=== PATIENT | female | born 1940 | race African-American/Black ===

== ENCOUNTER 2020-09-19 16:37 | Inpatient (IN) | payer BC, MEDICARE, OTHER ==
[~2020-09-19] VITALS: Ht 160 cm; Wt 103.4 kg
[~2020-09-19 16:37] MED LIST: DABI75CA5 PO; VALS320T15 PO
[2020-09-19] MEDS ORDERED: FUROSEMIDE 40 MG/4 ML VIAL IV ONE (17:00)
[2020-09-19 17:53] LABS: Basophils # (auto) 0 10 ^3/uL (0-0.2); Eosinophils # (auto) 0 10 ^3/uL (0-0.8); Mean Corpuscular Hemoglobin 23.6 pg (28.0-32.0); Monocytes # (auto) 0.3 10 ^3/uL (0-1.3); Red Cell Distribution Width 18.6 % (11.8-14.3); White Blood Cell 4.9 10^3/uL (4.4-10.8)
[2020-09-19 17:54] LABS: Basophils % (auto) 0.5 % (0.0-2.0); Hematocrit 28.4 % (36.0-46.0); Hemoglobin 8.6 g/dL (12.2-16.2); Lymphocytes # (auto) 0.9 10 ^3/uL (0.4-5.4); Mean Corpuscular Hgb Conc. 30.4 g/dL (32.0-36.0); Mean Corpuscular Volume 77.5 fL (80.0-100.0); Monocytes % (auto) 7.1 % (0.0-12.0); Neutrophils # (auto) 3.7 10 ^3/uL (1.6-8.6); Neutrophils % (auto) 74.4 % (37.0-80.0); Platelet Count (auto) 218 10^3/uL (140-450); Red Blood Cells 3.67 10^6/uL (4.0-5.20)
[2020-09-19 18:20] LABS: Albumin 2.7 g/dL (3.4-5.0); Calcium 7.4 mg/dL (8.5-10.1); Potassium 3.5 mmol/L (3.5-5.1)
[2020-09-19 18:26] LABS: Total Protein 7.3 g/dL (6.4-8.2)
[2020-09-19] MEDS ORDERED: AZITHROMYCIN 500MG/ 250ML 250 ML IV ONE (18:45)
[2020-09-19] MEDS ORDERED: methylPREDNISolone SOD SUCC 125 MG/2 ML VL IV ONE (18:45)
[2020-09-19] MEDS ORDERED: ZINC SULFATE 220mg CAP or TAB PO ONE (18:45)
[2020-09-19] MEDS ORDERED: ASCORBIC ACID 500 MG TAB PO ONE (18:45)
[2020-09-19] MEDS ORDERED: ENOXAPARIN SOD 100 MG/1 ML SYRINGE SC ONE (18:45)
[2020-09-19] MEDS ORDERED: cefTRIAXone 1GM/50ML D5W 50 ML IV ONE (19:00)
[2020-09-19] MEDS ORDERED: NITROGLYCERIN 0.4 MG SL TAB SL PRN (20:00)
[2020-09-19] MEDS ORDERED: ACETAMINOPHEN 500 MG TAB PO PRN (20:00)
[2020-09-19] MEDS ORDERED: MORPHINE SULF INJ 2 MG/ML SYRINGE 1ML IV PRN (20:00)
[2020-09-19 20:56] LABS: Magnesium 2.1 mg/dL (1.6-2.6)
[2020-09-19 21:18] LABS: CRP High Sensitivity 11.8 mg/dL (< 0.3)
[2020-09-19 21:29] VITALS: BP 157/56
[2020-09-19] MEDS ORDERED: REMDESIVIR 200 MG in NS 210ml LOADING DOSE ADULT IV ONE (22:00)
[2020-09-19] MEDS: ALBUTEROL SULF HFA 90MCG INH 200DOSE IN SCH (22:00)
[2020-09-19] MEDS ORDERED: DOXYCYCLINE 100MG/250ML 250 ML IV SCH (22:00)
[2020-09-19] MEDS: BUDESONIDE (INHALATION) 180 MCG IH IN SCH (22:00)
[2020-09-19] MEDS: CALCIUM CARB 500 MG CHEW TAB PO PRN (23:57)
[2020-09-19] MEDS: HYDROcodone-ACET 5/325MG TAB PO PRN (23:57)
[2020-09-20] MEDS: CHOLECALCIFEROL (VITD3) 2,000 UNIT CAP PO SCH ×2 (00:13→11:17)
[2020-09-20] MEDS: ASCORBIC ACID 1,000 MG TAB PO SCH ×2 (00:13→11:17)
[2020-09-20] MEDS: DOXYCYCLINE 100MG/250ML 250 ML IV SCH ×3 (02:43→21:32)
[2020-09-20] MEDS: HYDROcodone-ACET 5/325MG TAB PO PRN (05:22)
[2020-09-20 06:32] LABS: Hematocrit 28.1 % (36.0-46.0); Hemoglobin 8.8 g/dL (12.2-16.2); Mean Corpuscular Hemoglobin 23.9 pg (28.0-32.0); Mean Corpuscular Hgb Conc. 31.5 g/dL (32.0-36.0); Platelet Count (auto) 193 10^3/uL (140-450); Red Cell Distribution Width 18.5 % (11.8-14.3); White Blood Cell 4.7 10^3/uL (4.4-10.8)
[2020-09-20 06:49] LABS: Calcium 7.6 mg/dL (8.5-10.1); Potassium 3.2 mmol/L (3.5-5.1)
[2020-09-20 06:51] LABS: Basophils % (manual) 0 (0.0-2.0); Blast Cells 0; Eosinophils % (manual) 0 (0-7); Metamyelocytes % 0; Myelocytes % 0; Promyelocytes % 0; Reactive Lymphocytes 0
[2020-09-20 06:56] LABS: Albumin 2.6 g/dL (3.4-5.0); BUN/Creatinine Ratio 16.7; Band Neutrophils % (manual) 1; Bilirubin, Total 0.7 mg/dL (0.2-1.0); Lymphocytes % (manual) 27 (10.0-50.0); Monocytes % (manual) 1 (0-12)
[2020-09-20] MEDS: DexAMETHasone SOD PHOS 10MG/1ML VIAL INJ IV SCH (11:17)
[2020-09-20] MEDS: ZINC SULFATE 220mg CAP or TAB PO SCH (11:17)
[2020-09-20] MEDS: cefTRIAXone 1GM/50ML D5W 50 ML IV SCH (11:17)
[2020-09-20] MEDS: BUDESONIDE (INHALATION) 180 MCG IH IN SCH ×2 (11:23→23:16)
[2020-09-20] MEDS: ALBUTEROL SULF HFA 90MCG INH 200DOSE IN SCH ×3 (11:23→23:16)
[2020-09-20] MEDS: REMDESIVIR 100mg in NS 230ml DAILYx4DAYS (NO VENT) IV SCH (17:20)
[2020-09-20] MEDS: CALCIUM CARB 500 MG CHEW TAB PO PRN (18:13)
[2020-09-20 20:00] VITALS: BP 142/59
[2020-09-20 21:57] VITALS: BP 142/59
[2020-09-21] VITALS (11 sets, daily range): BP systolic 115–150; BP diastolic 49–95
[2020-09-21] MEDS ORDERED: GUAI100S6 PO (03:53)
[2020-09-21] MEDS ORDERED: FURO1TAB31 PO (03:53)
[2020-09-21] MEDS ORDERED: LACT10SO3 PO (03:53)
[2020-09-21] MEDS ORDERED: PREG100C PO (03:53)
[2020-09-21] MEDS ORDERED: PERCOT PO (03:53)
[2020-09-21] MEDS ORDERED: POTA10TA51 PO (03:53)
[2020-09-21] MEDS ORDERED: RIOC1TAB3 PO (03:53)
[2020-09-21] MEDS ORDERED: RIVA20TA PO (03:53)
[2020-09-21] MEDS ORDERED: LIDO5DIS21 TOP (03:53)
[2020-09-21] MEDS ORDERED: PNEUMOCOCCAL VACC POLYS 25 MCG/0.5 ML VIAL IM ONE (04:00)
[2020-09-21] MEDS ORDERED: INFLUENZA QUAD 2020-2021 0.5 ML SYRG IM ONE (04:00)
[2020-09-21] MEDS ORDERED: POTASSIUM CHL 20 Meq TABLET PO ONE (06:00)
[2020-09-21] MEDS: BUDESONIDE (INHALATION) 180 MCG IH IN SCH ×2 (06:46→22:16)
[2020-09-21] MEDS: ALBUTEROL SULF HFA 90MCG INH 200DOSE IN SCH ×3 (06:46→22:16)
[2020-09-21] MEDS: cefTRIAXone 1GM/50ML D5W 50 ML IV SCH (09:12)
[2020-09-21] MEDS: DOXYCYCLINE 100MG/250ML 250 ML IV SCH ×2 (11:13→21:34)
[2020-09-21] MEDS: DexAMETHasone SOD PHOS 10MG/1ML VIAL INJ IV SCH (11:13)
[2020-09-21] MEDS: ZINC SULFATE 220mg CAP or TAB PO SCH (11:13)
[2020-09-21] MEDS: CHOLECALCIFEROL (VITD3) 2,000 UNIT CAP PO SCH (11:13)
[2020-09-21] MEDS: ASCORBIC ACID 1,000 MG TAB PO SCH (11:14)
[2020-09-21] MEDS: CALCIUM CARB 500 MG CHEW TAB PO PRN (11:23)
[2020-09-21] MEDS: REMDESIVIR 100mg in NS 230ml DAILYx4DAYS (NO VENT) IV SCH (17:30)
[2020-09-21] MEDS: HYDROcodone-ACET 5/325MG TAB PO PRN (21:48)
[2020-09-22 05:54] VITALS: BP 146/76
[2020-09-22] MEDS: BUDESONIDE (INHALATION) 180 MCG IH IN SCH ×2 (06:08→21:56)
[2020-09-22] MEDS: ALBUTEROL SULF HFA 90MCG INH 200DOSE IN SCH ×3 (06:08→21:56)
[2020-09-22 07:49] LABS: Potassium 3.5 mmol/L (3.5-5.1)
[2020-09-22 07:57] LABS: Albumin 2.5 g/dL (3.4-5.0); BUN/Creatinine Ratio 21.7; Calcium 8.1 mg/dL (8.5-10.1)
[2020-09-22 08:00] LABS: Bilirubin, Total 0.8 mg/dL (0.2-1.0); Total Protein 6.6 g/dL (6.4-8.2)
[2020-09-22 09:00] VITALS: BP 146/76
[2020-09-22] MEDS: cefTRIAXone 1GM/50ML D5W 50 ML IV SCH (10:54)
[2020-09-22] MEDS: ASCORBIC ACID 1,000 MG TAB PO SCH (10:55)
[2020-09-22] MEDS: ZINC SULFATE 220mg CAP or TAB PO SCH (10:55)
[2020-09-22] MEDS: CHOLECALCIFEROL (VITD3) 2,000 UNIT CAP PO SCH (10:55)
[2020-09-22] MEDS: DexAMETHasone SOD PHOS 10MG/1ML VIAL INJ IV SCH (10:55)
[2020-09-22] MEDS: DOXYCYCLINE 100MG/250ML 250 ML IV SCH ×2 (12:00→22:19)
[2020-09-22 12:56] VITALS: BP 156/99
[2020-09-22] MEDS ORDERED: FUROSEMIDE 40 MG/4 ML VIAL IV ONE (16:15)
[2020-09-22] MEDS ORDERED: POTASSIUM CHL 20 Meq TABLET PO ONE (16:15)
[2020-09-22 16:57] VITALS: BP 151/85
[2020-09-22] MEDS: REMDESIVIR 100mg in NS 230ml DAILYx4DAYS (NO VENT) IV SCH (18:20)
[2020-09-22 21:00] VITALS: BP 158/72
[2020-09-22] MEDS: guaiFENesin-CODEINE Liq 5 ML UD PO PRN (22:19)
[2020-09-22 22:40] VITALS: BP 145/70
[2020-09-23 01:29] VITALS: BP 145/70
[2020-09-23 05:00] VITALS: BP 148/81
[2020-09-23] MEDS: BUDESONIDE (INHALATION) 180 MCG IH IN SCH ×2 (06:53→21:26)
[2020-09-23] MEDS: ALBUTEROL SULF HFA 90MCG INH 200DOSE IN SCH ×3 (06:53→21:26)
[2020-09-23 07:38] LABS: Albumin 2.6 g/dL (3.4-5.0); BUN/Creatinine Ratio 22.1; Calcium 7.9 mg/dL (8.5-10.1); Potassium 4.1 mmol/L (3.5-5.1); Total Protein 6.9 g/dL (6.4-8.2)
[2020-09-23 07:40] LABS: Bilirubin, Total 1.4 mg/dL (0.2-1.0)
[2020-09-23 09:00] VITALS: BP 148/67
[2020-09-23] MEDS: DexAMETHasone SOD PHOS 10MG/1ML VIAL INJ IV SCH (09:25)
[2020-09-23] MEDS: cefTRIAXone 1GM/50ML D5W 50 ML IV SCH (09:25)
[2020-09-23] MEDS: FUROSEMIDE 40 MG/4 ML VIAL IV SCH (09:27)
[2020-09-23] MEDS: DOXYCYCLINE 100MG/250ML 250 ML IV SCH ×2 (09:27→22:21)
[2020-09-23] MEDS: ZINC SULFATE 220mg CAP or TAB PO SCH (09:28)
[2020-09-23] MEDS: ASCORBIC ACID 1,000 MG TAB PO SCH (09:28)
[2020-09-23] MEDS: POTASSIUM CHL 20 Meq TABLET PO SCH (09:28)
[2020-09-23] MEDS: CHOLECALCIFEROL (VITD3) 2,000 UNIT CAP PO SCH (09:28)
[2020-09-23 13:00] VITALS: BP 163/72
[2020-09-23 17:00] VITALS: BP 156/75
[2020-09-23] MEDS: REMDESIVIR 100mg in NS 230ml DAILYx4DAYS (NO VENT) IV SCH (17:30)
[2020-09-23 21:00] VITALS: BP 132/75
[2020-09-23] MEDS: HYDROcodone-ACET 5/325MG TAB PO PRN (22:34)
[2020-09-24] MEDS: guaiFENesin-CODEINE Liq 5 ML UD PO PRN ×3 (01:09→20:41)
[2020-09-24 05:00] VITALS: BP 142/64
[2020-09-24] MEDS: BUDESONIDE (INHALATION) 180 MCG IH IN SCH ×2 (06:11→22:24)
[2020-09-24] MEDS: ALBUTEROL SULF HFA 90MCG INH 200DOSE IN SCH ×3 (06:11→22:24)
[2020-09-24 09:09] VITALS: BP 150/69
[2020-09-24] MEDS: DexAMETHasone SOD PHOS 10MG/1ML VIAL INJ IV SCH (09:37)
[2020-09-24] MEDS: cefTRIAXone 1GM/50ML D5W 50 ML IV SCH (09:37)
[2020-09-24] MEDS: FUROSEMIDE 40 MG/4 ML VIAL IV SCH (09:37)
[2020-09-24] MEDS: POTASSIUM CHL 20 Meq TABLET PO SCH (09:38)
[2020-09-24] MEDS: ASCORBIC ACID 1,000 MG TAB PO SCH (09:38)
[2020-09-24] MEDS: DOXYCYCLINE 100MG/250ML 250 ML IV SCH (09:38)
[2020-09-24] MEDS: ZINC SULFATE 220mg CAP or TAB PO SCH (09:38)
[2020-09-24] MEDS: CHOLECALCIFEROL (VITD3) 2,000 UNIT CAP PO SCH (09:38)
[2020-09-24 12:50] VITALS: BP 154/55
[2020-09-24] MEDS ORDERED: cloNIDine HCL 0.1 MG TAB PO PRN (14:00)
[2020-09-24 17:00] VITALS: BP 143/60
[2020-09-24 22:00] VITALS: BP 106/60
[2020-09-24] MEDS: HYDROcodone-ACET 5/325MG TAB PO PRN (22:04)
[2020-09-25] MEDS: HYDROcodone-ACET 5/325MG TAB PO PRN ×2 (04:38→22:54)
[2020-09-25 05:00] VITALS: BP 130/64
[2020-09-25] MEDS: ALBUTEROL SULF HFA 90MCG INH 200DOSE IN SCH ×3 (06:57→21:31)
[2020-09-25] MEDS: BUDESONIDE (INHALATION) 180 MCG IH IN SCH ×2 (06:57→21:31)
[2020-09-25 08:00] VITALS: BP 126/71
[2020-09-25] MEDS: cefTRIAXone 1GM/50ML D5W 50 ML IV SCH (09:30)
[2020-09-25] MEDS: ZINC SULFATE 220mg CAP or TAB PO SCH (09:30)
[2020-09-25] MEDS: CHOLECALCIFEROL (VITD3) 2,000 UNIT CAP PO SCH (09:30)
[2020-09-25] MEDS: ASCORBIC ACID 1,000 MG TAB PO SCH (09:30)
[2020-09-25] MEDS: DexAMETHasone SOD PHOS 10MG/1ML VIAL INJ IV SCH (09:30)
[2020-09-25] MEDS: POTASSIUM CHL 20 Meq TABLET PO SCH (09:30)
[2020-09-25] MEDS: FUROSEMIDE 40 MG/4 ML VIAL IV SCH (09:30)
[2020-09-25 12:00] VITALS: BP 148/66
[2020-09-25 17:00] VITALS: BP 130/64
[2020-09-25 22:00] VITALS: BP 134/56
[2020-09-26 05:00] VITALS: BP 135/65
[2020-09-26] MEDS: ALBUTEROL SULF HFA 90MCG INH 200DOSE IN SCH ×3 (07:40→21:04)
[2020-09-26] MEDS: BUDESONIDE (INHALATION) 180 MCG IH IN SCH ×2 (07:42→21:04)
[2020-09-26 08:50] VITALS: BP 133/70
[2020-09-26 09:17] VITALS: BP 134/56
[2020-09-26] MEDS: ZINC SULFATE 220mg CAP or TAB PO SCH (10:00)
[2020-09-26] MEDS: cefTRIAXone 1GM/50ML D5W 50 ML IV SCH (10:37)
[2020-09-26] MEDS: POTASSIUM CHL 20 Meq TABLET PO SCH (10:37)
[2020-09-26] MEDS: DexAMETHasone SOD PHOS 10MG/1ML VIAL INJ IV SCH (10:37)
[2020-09-26] MEDS: FUROSEMIDE 40 MG/4 ML VIAL IV SCH (10:37)
[2020-09-26] MEDS: CHOLECALCIFEROL (VITD3) 2,000 UNIT CAP PO SCH (10:38)
[2020-09-26] MEDS: ASCORBIC ACID 1,000 MG TAB PO SCH (10:38)
[2020-09-26 13:00] VITALS: BP 108/55
[2020-09-26] MEDS: guaiFENesin-CODEINE Liq 5 ML UD PO PRN (15:55)
[2020-09-26 17:00] VITALS: BP 116/50
[2020-09-26] MEDS: HYDROcodone-ACET 5/325MG TAB PO PRN (20:19)
[2020-09-26 22:00] VITALS: BP 120/55
[2020-09-27] MEDS: ALPRAZolam 0.25 MG TAB PO PRN ×2 (00:55→22:24)
[2020-09-27 05:00] VITALS: BP_SYST 110; BP_SYST 133; BP_DIAS 52; BP_DIAS 62
[2020-09-27] MEDS: BUDESONIDE (INHALATION) 180 MCG IH IN SCH ×2 (06:55→20:24)
[2020-09-27] MEDS: ALBUTEROL SULF HFA 90MCG INH 200DOSE IN SCH ×3 (06:56→20:24)
[2020-09-27 08:48] VITALS: BP 116/69
[2020-09-27] MEDS: cefTRIAXone 1GM/50ML D5W 50 ML IV SCH (09:53)
[2020-09-27] MEDS: DexAMETHasone SOD PHOS 10MG/1ML VIAL INJ IV SCH (09:53)
[2020-09-27] MEDS: ZINC SULFATE 220mg CAP or TAB PO SCH (09:54)
[2020-09-27] MEDS: FUROSEMIDE 40 MG/4 ML VIAL IV SCH (09:54)
[2020-09-27] MEDS: ASCORBIC ACID 1,000 MG TAB PO SCH (09:54)
[2020-09-27] MEDS: POTASSIUM CHL 20 Meq TABLET PO SCH (09:54)
[2020-09-27] MEDS: CHOLECALCIFEROL (VITD3) 2,000 UNIT CAP PO SCH (09:55)
[2020-09-27 13:00] VITALS: BP 124/65
[2020-09-27] MEDS: guaiFENesin-CODEINE Liq 5 ML UD PO PRN ×2 (14:11→22:24)
[2020-09-27 17:00] VITALS: BP 114/43
[2020-09-28] MEDS: BUDESONIDE (INHALATION) 180 MCG IH IN SCH (07:25)
[2020-09-28] MEDS: ALBUTEROL SULF HFA 90MCG INH 200DOSE IN SCH ×2 (07:25→13:59)
[2020-09-28 09:00] VITALS: BP 108/40
[2020-09-28] MEDS: DexAMETHasone SOD PHOS 10MG/1ML VIAL INJ IV SCH (10:00)
[2020-09-28] MEDS: ZINC SULFATE 220mg CAP or TAB PO SCH (10:00)
[2020-09-28] MEDS: CHOLECALCIFEROL (VITD3) 2,000 UNIT CAP PO SCH (10:00)
[2020-09-28] MEDS: FUROSEMIDE 40 MG/4 ML VIAL IV SCH (10:00)
[2020-09-28] MEDS: ASCORBIC ACID 1,000 MG TAB PO SCH (10:00)
[2020-09-28] MEDS: POTASSIUM CHL 20 Meq TABLET PO SCH (10:00)
[2020-09-28 12:00] VITALS: BP 127/61
== END 2020-09-28 12:30 | disposition home health service (06) | DRG 177 ==
LOC: ER 16:37 → TELE 19:54 → TELE-EAST 09-20 18:50
PROVIDERS: ADMIT Nurse Practitioner Acute Care; ATTEND Internal Medicine Cardiovascular Disease
PROC: XW033E5 Introduction of Remdesivir Anti-infective into Peripheral Vein, Percutaneous Approach, New Technology Group 5 (ICD-10-PCS; principal; 2020-09-19)
PROC: XW13325 Transfusion of Convalescent Plasma (Nonautologous) into Peripheral Vein, Percutaneous Approach, New Technology Group 5 (ICD-10-PCS; 2020-09-21)
DX: U07.1 COVID-19 (principal); J96.01 Acute respiratory failure with hypoxia; J12.89 Other viral pneumonia; I13.0 Hypertensive heart and chronic kidney disease with heart failure and stage 1 through stage 4 chronic kidney disease, or unspecified chronic kidney disease; D64.9 Anemia, unspecified; N18.30 Chronic kidney disease, stage 3 unspecified; E87.6 Hypokalemia; E78.5 Hyperlipidemia, unspecified; F41.9 Anxiety disorder, unspecified; I48.91 Unspecified atrial fibrillation; I50.9 Heart failure, unspecified; F32.9 Major depressive disorder, single episode, unspecified; M19.90 Unspecified osteoarthritis, unspecified site; Z79.01 Long term (current) use of anticoagulants; Z82.49 Family history of ischemic heart disease and other diseases of the circulatory system; Z83.3 Family history of diabetes mellitus; Z90.710 Acquired absence of both cervix and uterus; Z28.21 Immunization not carried out because of patient refusal
CPT/HCPCS: 36415; 71045; 80053; 82728; 83605; 83735; 83880; 84484; 85007; 85025; 85027; 85379; 86141; 86850; 86900; 86901; 87040; 87426; 87804; 93005; 94640; 96365; 96372; 96375; 97110; 97163; 97530; G0378; J0696; J1100; J3490

== ENCOUNTER 2020-10-04 16:16 | Inpatient (IN) | payer MEDICARE ==
[~2020-10-04] VITALS: Ht 160 cm; Wt 104.4 kg
[~2020-10-04 16:16] MED LIST changes: +FURO1TAB31 PO; +GUAI100S6 PO; +LACT10SO3 PO; +LIDO5DIS21 TOP; +PERCOT PO; +POTA10TA51 PO; +PREG100C PO; +RIOC1TAB3 PO; +RIVA20TA PO
[2020-10-04 19:16] LABS: Basophils # (auto) 0.1 10 ^3/uL (0-0.2); Eosinophils # (auto) 0 10 ^3/uL (0-0.8); Eosinophils % (auto) 0.1 % (0.0-7.0); Lymphocytes # (auto) 0.8 10 ^3/uL (0.4-5.4); Lymphocytes % (auto) 7.3 % (10.0-50.0); Monocytes # (auto) 0.8 10 ^3/uL (0-1.3)
[2020-10-04 19:17] LABS: Basophils % (auto) 0.7 % (0.0-2.0); Hematocrit 31.2 % (36.0-46.0); Hemoglobin 9.3 g/dL (12.2-16.2); Mean Corpuscular Hemoglobin 23.5 pg (28.0-32.0); Mean Corpuscular Hgb Conc. 29.7 g/dL (32.0-36.0); Mean Corpuscular Volume 79.1 fL (80.0-100.0); Neutrophils # (auto) 8.8 10 ^3/uL (1.6-8.6); Neutrophils % (auto) 83.9 % (37.0-80.0); Nucleated Red Blood Cells % 0.3 %; Platelet Count (auto) 285 10^3/uL (140-450); Red Blood Cells 3.94 10^6/uL (4.0-5.20); White Blood Cell 10.4 10^3/uL (4.4-10.8)
[2020-10-04 19:19] LABS: Red Cell Distribution Width 22.3 % (11.8-14.3)
[2020-10-04 19:32] LABS: INR 1.76 (0.9-1.15); Partial Thromboplastin Time 35.6 sec (23.0-31.2)
[2020-10-04 19:37] LABS: Albumin 2.3 g/dL (3.4-5.0); Calcium 8.2 mg/dL (8.5-10.1); Magnesium 2.1 mg/dL (1.6-2.6); Potassium 4.5 mmol/L (3.5-5.1)
[2020-10-04 19:42] LABS: Total Protein 7.8 g/dL (6.4-8.2)
[2020-10-04] MEDS ORDERED: AZITHROMYCIN 500MG/ 250ML 250 ML IV ONE (21:15)
[2020-10-04] MEDS ORDERED: NITROGLYCERIN 0.4 MG SL TAB SL PRN (23:15)
[2020-10-04] MEDS ORDERED: MORPHINE SULF INJ 2 MG/ML SYRINGE 1ML IV PRN (23:15)
[2020-10-05] MEDS ORDERED: CYANOCOBALAMIN (B-12) 1000 MCG/1 ML VIAL SUBCUT ONE (01:15)
[2020-10-05 03:56] VITALS: BP 112/56
[2020-10-05] MEDS ORDERED: ACETAMINOPHEN 500 MG TAB PO ONE (04:30)
[2020-10-05] MEDS: LEVALBUTEROL HCL 1.25 MG/3 ML NEB NEB SCH ×5 (06:00→21:19)
[2020-10-05] MEDS ORDERED: ASCORBIC ACID 500 MG TAB PO SCH (10:00)
--- NOTE | 2020-10-05 11:06 | NUR ---
Midline Placement: Patient educated on need for midline placement. All risks and benefits explained and all questions and concerns addresses prior to procedure. 18g/10 cm midline inserted via left basilic vein using Ultrasound. Sterile technique utilized. Blood return obtained from the single lumen and flushed easily with NS using proper technique. Midline secured with saline lock; biodisc and occlusive dressing applied. Primary RN Marguerite notified. Midline lot # [id number]
[2020-10-05] MEDS: DOXYCYCLINE 100 MG TAB/CAP PO SCH ×2 (14:06→22:15)
[2020-10-05] MEDS: predniSONE 20 MG TAB PO SCH (14:06)
[2020-10-05] MEDS: cefTRIAXone 1GM/50ML D5W 50 ML IV SCH (14:06)
[2020-10-05] MEDS: ZINC SULFATE 220mg CAP or TAB PO SCH (14:06)
[2020-10-05] MEDS: CHOLECALCIFEROL (VITD3) 2,000 UNIT CAP PO SCH (14:07)
--- NOTE | 2020-10-05 16:55 | NUR ---
SWALLOW EVALUATED. PATIENT HAS NATURAL TEETH, UPPER AND LOWER. ABLE TO FOLLOW DIRECTIONS. PATIENT ABLE TO TOLERATE MECHANICAL SOFT DIET TEXTURE WITH THIN LIQUIDS WITH NO OVERT SIGNS OR SYMPTOMS OF ASPIRATION. NURSING NOTIFIED.
--- NOTE | 2020-10-05 17:58 | NUR ---
Telemetry admit from [facility] admitted to Telemetry unit after SBAR received. Patient oriented to JUNI DOZIER, RN primary RN, unit, room, bed, and unit policies regarding patient care and visiting hours. Patient now on continuous telemetry monitoring, tele box # 28. Patient placed on bedside oxygen at 5L oxymizer, weighed by bed scale and encouraged to call if they need something. All questions and concerns addressed, patient verbalized understanding. VS: 135/90, 91 HR, 92%, 97.8, 22 RR. No complaints of pain at this time
[2020-10-05 18:29] VITALS: BP 135/90
--- NOTE | 2020-10-05 18:53 | NUR ---
MED REC Patients daughter to call with med list
--- NOTE | 2020-10-05 19:51 | NUR ---
Respiratory note: TITRATED FIO2 TO 4L OXYMIZER
--- NOTE | 2020-10-05 19:57 | NUR ---
PAGED DR. BLOUNT TO CHANGE NEBULIZATION ORDER TO INHALER SINCE PATIENT IS CONSIDERED COVID POSITIVE. SPOKE WITH RT. WILL CONTINUE TO MONITOR PATIENT.
[2020-10-05 22:00] VITALS: BP 112/45
--- NOTE | 2020-10-05 22:54 | NUR ---
mrsa swab sent to lab.
--- NOTE | 2020-10-05 23:55 | NUR ---
Spoke with patient's daughter Wale with phone number [phone]. password given and verified. Requesting for home medication. She said that she is going to bring the med list tomorrow morning. As per daughter patient has a home health nurse that placed the guaman catheter last Friday10/02/20 for immobility. All questions answered and updates given.
--- NOTE | 2020-10-06 00:03 | NUR ---
Respiratory note: MED NEB TX NOT ADMINISTERED AT THIS TIME MED NEB TX NOT ALLOWED PER COVID PROTOCOL. CHANGE OF ORDER TO MDI PENDING.
--- NOTE | 2020-10-06 00:18 | NUR ---
Informed RT that Dr. Rabago had ordered Pulmicort 2 puffs TID via telephone. RT said that she will put in the order and will carry in the morning since pharmacy was closed already. Obtained an order for cough medicine pls see emar. will carry order.
[2020-10-06] MEDS ORDERED: guaiFENesin-DM 100/10mg/5ml SYR PO PRN (00:30)
--- NOTE | 2020-10-06 01:12 | NUR ---
PICTURE TAKEN OF THE WOUNDS. PATIENT TOLERATED
[2020-10-06] MEDS: guaiFENesin-CODEINE Liq 5 ML UD PO PRN ×2 (01:37→17:17)
[2020-10-06 05:00] VITALS: BP 145/62
[2020-10-06 08:18] VITALS: BP 131/56
[2020-10-06] MEDS: predniSONE 20 MG TAB PO SCH (10:00)
[2020-10-06] MEDS: ZINC SULFATE 220mg CAP or TAB PO SCH (10:00)
[2020-10-06] MEDS: cefTRIAXone 1GM/50ML D5W 50 ML IV SCH (10:00)
[2020-10-06] MEDS: ASCORBIC ACID 1,000 MG TAB PO SCH (10:00)
[2020-10-06] MEDS: CHOLECALCIFEROL (VITD3) 2,000 UNIT CAP PO SCH (10:00)
[2020-10-06] MEDS: DOXYCYCLINE 100 MG TAB/CAP PO SCH ×2 (10:00→21:44)
[2020-10-06] MEDS: BUDESONIDE (INHALATION) 180 MCG IH IN SCH ×2 (11:05→23:11)
[2020-10-06 12:30] VITALS: BP 153/56
--- NOTE | 2020-10-06 12:54 | NUR ---
WOUND CARE NOTE: Wound care in to see patient per wound care request regarding multiple wounds/skin issue that are noted upon admission to unit. Bedside nurse took photograph of patient's wounds/skin issue for reference. Patient is 79 years old female with admitting diagnosis of Pneumonia. Patient is resting in bed in Rm. 246A. Patient is awake, alert and oriented. Patient is in no stated pain at this time. She's able to assist in turning and repositioning. Her Jessee score is 15. Patient noted with bilateral multiple skin integrity issue: Intact DTI (Deep Tissue Injury) to Lt (1x2cm), medial (1.5x0.8cm) and Rt (2x1cm) sacrum. DTI are intact, dark maroon/purple. Lower sacrum noted with large pink scar tissue with skin erosion MASD. Lela care given, applied Z Guard cream to sacral,buttocks and covered sacrum with Opti foam sacral dressing. Dry resolving skin tear noted on patient's Llat lower leg and scabbed abrasion noted to her Rt thigh. Patient's bilateral knee noted with purple ecchymosis, reports of history of fall. Patient tolerated well. Repositioned patient for comfort on her back for lunchtime. Bed in low position with all safety precautions in placed. RECOMMENDATION: Nursing to continue with BID/PRN cleaning and application of Z Guard cream to sacral, buttocks per MD order, Dietary consult for wounds, frequent turning and repositioning schedule as condition permits, redistribute pressure points with pillows, air mattress (ordered ), elevate heels on pillows, continue monitoring by wound care while patient is hospitalized. Addendum: 10/06/20 at 1727 by Gloria Beauchamp RN Amended: Links added.
--- NOTE | 2020-10-06 16:20 | NUR ---
AIR MATTRESS: Air mattress ordered at [facility] 10/06/20 @ 2218, Reference# [id number]. Call [facility] at 5 [phone] if needed to follow up. Patient's nurse, MARCY Mcmahon made aware that air mattress ordered Addendum: 10/06/20 at 1622 by Gloria Beauchamp RN Amended: Links added.
[2020-10-06 17:00] VITALS: BP 137/64
--- NOTE | 2020-10-06 19:39 | NUR ---
Opening Shift Note Received report and assumed care of patient. Patient is awake and alert. No signs or symptoms of distress noted, patient currently denies pain. Instructed patient on plan of care and to call for assistance as needed. Will continue to monitor.
--- NOTE | 2020-10-06 19:52 | NUR ---
Opening Shift Note Received report and assumed care of patient. Patient is awake and alert. No signs or symptoms of distress noted. Instructed patient on plan of care and to call for assistance as needed. Will continue to monitor. Addendum: 10/07/20 at 2315 by LEROY MONDRAGON RN RN Incorrect date.
[2020-10-06 22:00] VITALS: BP 135/66
[2020-10-07] MEDS: guaiFENesin-CODEINE Liq 5 ML UD PO PRN ×3 (00:03→19:58)
[2020-10-07 01:03] LABS: Urine Bacteria FEW /hpf (None Seen); Urine Blood 2+ /uL (Negative); Urine Budding Yeast MANY /hpf (None Seen); Urine Mucus FEW (None Seen); Urine Specific Gravity 1.015 (1.001-1.035); Urine WBC 27 /hpf (0 - 5)
[2020-10-07 05:00] VITALS: BP 144/60
[2020-10-07] MEDS: BUDESONIDE (INHALATION) 180 MCG IH IN SCH ×2 (07:36→22:00)
[2020-10-07 07:42] LABS: Basophils # (auto) 0 10 ^3/uL (0-0.2); Basophils % (auto) 0.3 % (0.0-2.0); Mean Corpuscular Hgb Conc. 31.1 g/dL (32.0-36.0); Neutrophils # (auto) 6.8 10 ^3/uL (1.6-8.6)
[2020-10-07 07:47] LABS: Eosinophils # (auto) 0.1 10 ^3/uL (0-0.8); Eosinophils % (auto) 0.6 % (0.0-7.0); Hematocrit 25.5 % (36.0-46.0); Hemoglobin 7.9 g/dL (12.2-16.2); Lymphocytes # (auto) 2.5 10 ^3/uL (0.4-5.4); Mean Corpuscular Hemoglobin 23.9 pg (28.0-32.0); Mean Corpuscular Volume 76.7 fL (80.0-100.0); Monocytes # (auto) 0.9 10 ^3/uL (0-1.3); Monocytes % (auto) 8.9 % (0.0-12.0); Neutrophils % (auto) 66.2 % (37.0-80.0); Nucleated Red Blood Cells % 0.4 %; Platelet Count (auto) 248 10^3/uL (140-450); Red Blood Cells 3.32 10^6/uL (4.0-5.20); White Blood Cell 10.2 10^3/uL (4.4-10.8)
[2020-10-07 08:00] LABS: Red Cell Distribution Width 22.2 % (11.8-14.3)
[2020-10-07 08:05] LABS: Albumin 2.1 g/dL (3.4-5.0); Calcium 8.1 mg/dL (8.5-10.1)
[2020-10-07 08:07] LABS: BUN/Creatinine Ratio 35.3
[2020-10-07 08:09] LABS: Bilirubin, Total 0.6 mg/dL (0.2-1.0); Total Protein 6.8 g/dL (6.4-8.2)
[2020-10-07 08:31] VITALS: BP 143/59
--- NOTE | 2020-10-07 08:45 | NUR ---
SPOKE TO Deepak BLOUNT REGARDING PATIENTS RECENT CXR SHOWING A LEFT SMALL PNEUMOTHORAX. NO NEW ORDERS RECEIVED. RECEIVED ORDERS FOR COVID SWAB.
--- NOTE | 2020-10-07 08:50 | NUR ---
COVID SWAB COLLECTED AND WALKED TO LAB
[2020-10-07] MEDS: cefTRIAXone 1GM/50ML D5W 50 ML IV SCH (11:04)
[2020-10-07] MEDS: predniSONE 20 MG TAB PO SCH (11:04)
[2020-10-07] MEDS: CHOLECALCIFEROL (VITD3) 2,000 UNIT CAP PO SCH (11:05)
[2020-10-07] MEDS: ZINC SULFATE 220mg CAP or TAB PO SCH (11:05)
[2020-10-07] MEDS: DOXYCYCLINE 100 MG TAB/CAP PO SCH ×2 (11:05→21:31)
[2020-10-07] MEDS: ASCORBIC ACID 1,000 MG TAB PO SCH (11:05)
--- NOTE | 2020-10-07 11:10 | NUR ---
Nutrition Assessment/consults Notes please see attached link for complete assessment [employer] needs ABW 78 [id number] kcals (17-20kcal/kgABW), Est Protein needs: 78-93 gms/day (1.0-1.2 gm/kgABW r/t wounds hypoalb). Will continue to monitor and reassess prn.. Addendum: 10/07/20 at [address] Amended: Links added.
[2020-10-07] MEDS ORDERED: LIDOCAINE 1% HCL (LOCAL ANESTH.) INJ 20ML MDV ONE (11:48)
[2020-10-07 12:25] VITALS: BP 136/51
--- NOTE | 2020-10-07 13:30 | NUR ---
MARGARET SWAB COLLECTED AND WALKED TO LAB BY THIS RN.
--- NOTE | 2020-10-07 16:11 | NUR ---
SPOKE TO Deepak BLOUNT REGARDING LACK OF ORDER FOR LOVENOX AND PATIENTS INABILITY TO AMBULATE WITHOUT DESATURATING DOWN TO 80% WITH PHYSICAL THERAPY. RECEIVED ORDER FOR SCDS. PATIENT PLACED ON SCDS AT THIS TIME.
[2020-10-07 16:51] VITALS: BP 149/60
--- NOTE | 2020-10-07 18:05 | NUR ---
NOTIFIED CHARGE NURSE BINDU AND HYDROGEOLOGY PROFESSOR OF NEGATIVE ZEUS AND IN HOUSE COVID SWABS.
--- NOTE | 2020-10-07 19:52 | NUR ---
Opening Shift Note Received report and assumed care of patient. Patient is awake and alert. No signs or symptoms of distress noted. Instructed patient on plan of care and to call for assistance as needed. Will continue to monitor.
[2020-10-07 22:00] VITALS: BP 146/56
--- NOTE | 2020-10-07 23:09 | NUR ---
Patient Transfer Patient's COVID swab negative. Patient transferred to room 275A. Updated patient's daughter on transfer and plan of care. Will endorse care.
--- NOTE | 2020-10-08 02:06 | NUR ---
PT TURNED AND PLACED ON BEDPAN.
[2020-10-08 05:00] VITALS: BP 158/52
--- NOTE | 2020-10-08 05:50 | NUR ---
PT TURNED WITH PROMPTING AND ASSISTANCE..TOLERATED WELL.
--- NOTE | 2020-10-08 08:00 | NUR ---
OPENING SHIFT NOTE ASSUMED CARE OF PATIENT AWAKE AND ALERT. NO S/S OF DISTRESS NOTED OR COMPLAINTS OF PAIN. PATIENT UPDATED ON POC FOR THE DAY AND ALL QUESTIONS ANSWERED. BED IS IN LOWEST, LOCKED POSITION WITH SIDE RAILS UP X2, CALL LIGHT WITHIN REACH, AND BED ALARM ON FOR SAFETY. WILL CONTINUE TO MONITOR Q1H AND PRN.
[2020-10-08 09:41] VITALS: BP 153/57
[2020-10-08] MEDS: cefTRIAXone 1GM/50ML D5W 50 ML IV SCH (10:09)
[2020-10-08] MEDS: ZINC SULFATE 220mg CAP or TAB PO SCH (10:09)
[2020-10-08] MEDS: predniSONE 20 MG TAB PO SCH (10:09)
[2020-10-08] MEDS: DOXYCYCLINE 100 MG TAB/CAP PO SCH ×2 (10:10→23:37)
[2020-10-08] MEDS: ASCORBIC ACID 1,000 MG TAB PO SCH (10:10)
[2020-10-08] MEDS: CHOLECALCIFEROL (VITD3) 2,000 UNIT CAP PO SCH (10:10)
[2020-10-08] MEDS: BUDESONIDE (INHALATION) 180 MCG IH IN SCH (10:29)
--- NOTE | 2020-10-08 10:29 | NUR ---
Respiratory note: PT ASSESSED FOR ORDERED PULMICORT ORDER PT IS STABLE IN NO NOTED DISTRESS. HR 72 RR 18 SPO2 97% ON 4L OXYMIZER. PT STATES SHE WEARS 4L N/C AT HOME. RT WILL DC PULMICORT ORDER PT IS COVID-19 NEGATIVE. PT AND RN AWARE TO HAVE RT PAGED IF NEEDED.
[2020-10-08 13:05] VITALS: BP 152/48
[2020-10-08] MEDS: LEVALBUTEROL HCL 1.25 MG/3 ML NEB NEB SCH ×3 (15:43→23:07)
[2020-10-08 16:44] VITALS: BP 148/54
[2020-10-08] MEDS: Ensure Enlive Strawberry 8oz Bottle PO SCH (18:04)
[2020-10-08 21:00] VITALS: BP 142/68
[2020-10-09] MEDS: HYDROcodone-ACET 10/325MG TAB PO PRN (01:40)
[2020-10-09 05:00] VITALS: BP 137/69
[2020-10-09] MEDS: LEVALBUTEROL HCL 1.25 MG/3 ML NEB NEB SCH ×3 (06:54→19:20)
--- NOTE | 2020-10-09 07:40 | NUR ---
Opening Shift Note Assumed care of patient, AOx4. No S/S of distress/SOB or pain. Patient on 3L Oxymizer. Safety measures in place, bed locked in lowest position, call light within reach. Instructed on POC and to call for assist PRN, will continue to monitor for changes Q1hr and PRN.
[2020-10-09] MEDS: Ensure Enlive Strawberry 8oz Bottle PO SCH ×3 (09:02→18:43)
[2020-10-09] MEDS: predniSONE 20 MG TAB PO SCH (10:06)
[2020-10-09] MEDS: ASCORBIC ACID 1,000 MG TAB PO SCH (10:06)
[2020-10-09] MEDS: ZINC SULFATE 220mg CAP or TAB PO SCH (10:07)
[2020-10-09] MEDS: DOXYCYCLINE 100 MG TAB/CAP PO SCH ×2 (10:08→22:31)
[2020-10-09] MEDS: CHOLECALCIFEROL (VITD3) 2,000 UNIT CAP PO SCH (10:08)
--- NOTE | 2020-10-09 10:30 | NUR ---
Physical therapy at bedside PT at bedside working with patient.
[2020-10-09] MEDS: cefTRIAXone 1GM/50ML D5W 50 ML IV SCH (11:10)
[2020-10-09] MEDS: guaiFENesin-CODEINE Liq 5 ML UD PO PRN ×2 (16:03→22:31)
[2020-10-09 17:00] VITALS: BP 155/81
--- NOTE | 2020-10-09 19:20 | NUR ---
Closing note Report given to plant operator/shift supervisor RN. Patient resting in bed 3L Oxymizer, no sign of distress noted.
[2020-10-09 21:00] VITALS: BP 130/54
[2020-10-10] MEDS: guaiFENesin-CODEINE Liq 5 ML UD PO PRN ×2 (04:55→21:57)
[2020-10-10 05:00] VITALS: BP 132/61
[2020-10-10] MEDS: LEVALBUTEROL HCL 1.25 MG/3 ML NEB NEB SCH ×5 (06:10→23:27)
[2020-10-10 08:00] VITALS: BP 146/58
[2020-10-10] MEDS: DOXYCYCLINE 100 MG TAB/CAP PO SCH ×2 (08:46→21:11)
[2020-10-10] MEDS: ASCORBIC ACID 1,000 MG TAB PO SCH (08:46)
[2020-10-10] MEDS: ZINC SULFATE 220mg CAP or TAB PO SCH (08:47)
[2020-10-10] MEDS: predniSONE 20 MG TAB PO SCH (08:47)
[2020-10-10] MEDS: CHOLECALCIFEROL (VITD3) 2,000 UNIT CAP PO SCH (08:47)
[2020-10-10] MEDS: cefTRIAXone 1GM/50ML D5W 50 ML IV SCH (08:48)
[2020-10-10] MEDS: Ensure Enlive Strawberry 8oz Bottle PO SCH ×2 (08:57→19:27)
[2020-10-10 11:03] VITALS: BP 132/61
[2020-10-10 12:00] VITALS: BP 138/48
--- NOTE | 2020-10-10 12:49 | NUR ---
Nutrition Followup Note Wt 104.3kg Pt was asleep with no family at bedside at time of rounds. Pt is now in [facility] after covid was ruled out. Pt is with a fair appetite aeb pt with 67% po intake x 3 days per Rn note. Pt also with ensure enlive TID, consider d/c oral supplement if pt po intake is good. [employer] needs ABW 78 [id number] kcals (17-20kcal/kgABW), Est Protein needs: 78-93 gms/day (1.0-1.2 gm/kgABW r/t wounds hypoalb). Will continue to monitor and reassess prn.. Labs: Creat 0.51L, Alb 2.1L, Ca 8.1L BM: Pt with 1 BM 10/10 per RN note Skin: Bs 16 mod risk, full details in geriatric personal care aide note PES: Altered nutrition related lab values r.t current chronic medical condition aeb severe hypoalb hypocalcemia Decreased nutrient needs r/t adiposity aeb pt`s high BMI of 40.7 kgm2 Comments: 1) refer to OPD dietitian on DC 2) consider prostat 1 packet bid 3) continue current plan of care Expected Outcomes/Goals: Pt will not gain any more wt pt will have better healing wounds F/u mod 3-5 days
--- NOTE | 2020-10-10 14:08 | NUR ---
DOCTOR AT BEDSIDE DR. BLOUNT UPDATED PLAN OF CARE WITH PATIENT AND THIS RN. SOCIAL SERVICE CONSULT REQUESTED, PATIENT VERBALIZED UNDERSTANDING.
[2020-10-10 15:57] LABS: Albumin 2.4 g/dL (3.4-5.0); Calcium 8.2 mg/dL (8.5-10.1); Potassium 5.4 mmol/L (3.5-5.1)
[2020-10-10 16:00] VITALS: BP 142/52
--- NOTE | 2020-10-10 16:00 | NUR ---
SS consult for SNF placement for physical therapy. Pt resided at home with her spouse prior to admission and used home Oxygen. Provider requested [facility] but per Reg career coordinator, facility is declining any new patient for admission. Per Lupe, career coordinator, [facility] has no bed availability at this time. Contacted Essence, career coordinator, at [facility] and faxed clinical information. Pt accepted to room 30A under Dr. Barragan. Pt will be transported by [facility] via gurney with O2 at 1830. No further concerns / needs. Addendum: 10/10/20 at 1601 by FABIENNE ARNDT [facility] contact number for report .
[2020-10-10 16:01] LABS: Bilirubin, Total 0.4 mg/dL (0.2-1.0); Total Protein 7.1 g/dL (6.4-8.2)
--- NOTE | 2020-10-10 16:31 | NUR ---
Call to Dr. Rabago This RN updated MD on bed available at [facility], obtained verbal orders from to place transfer to SNF orders. Patient to discharge with midline. Will implement orders. Will continue to monitor.
[2020-10-10 18:32] LABS: Basophils # (auto) 0 10 ^3/uL (0-0.2); Basophils % (auto) 0.3 % (0.0-2.0); Eosinophils # (auto) 0 10 ^3/uL (0-0.8); Eosinophils % (auto) 0.1 % (0.0-7.0); Lymphocytes # (auto) 1.1 10 ^3/uL (0.4-5.4); Mean Corpuscular Hemoglobin 23.4 pg (28.0-32.0); Mean Corpuscular Hgb Conc. 29.6 g/dL (32.0-36.0); Mean Corpuscular Volume 79.1 fL (80.0-100.0); Monocytes # (auto) 0.3 10 ^3/uL (0-1.3); Monocytes % (auto) 4.1 % (0.0-12.0); Neutrophils % (auto) 82.5 % (37.0-80.0); Nucleated Red Blood Cells % 0.2 %; Platelet Count (auto) 248 10^3/uL (140-450); Red Blood Cells 3.42 10^6/uL (4.0-5.20); White Blood Cell 8.4 10^3/uL (4.4-10.8)
--- NOTE | 2020-10-10 18:39 | NUR ---
Patient refusing to go to SNF, [facility]. Spoke with patient that it is the only local facility at the moment to take her in. Patient states she had a previous encounter at this facility 4-5 years ago. Will page Dr. Rabago regarding refusal.
--- NOTE | 2020-10-10 18:50 | NUR ---
Discharge held Patient refusing to transfer to [facility]. Dr. Hima mata MD states ok to hold discharge until tomorrow.
--- NOTE | 2020-10-10 19:23 | NUR ---
Closing note Report given to electrical installation supervisor RN. Patient resting in bed 3L Oxymizer, no sign of distress noted.
[2020-10-10] MEDS: HYDROcodone-ACET 10/325MG TAB PO PRN (20:24)
[2020-10-10 22:00] VITALS: BP 109/62
[2020-10-11] MEDS: LEVALBUTEROL HCL 1.25 MG/3 ML NEB NEB SCH ×4 (06:41→23:12)
--- NOTE | 2020-10-11 07:30 | NUR ---
Opening Shift Note Report received and Assumed care of patient,awake,alert and oriented. No S/S of distress/SOB or pain. Instructed on POC,call light within reach,patient reminded instructed to call for assistance,verbalized understanding,will continue to monitor for changes Q1hr and PRN.
[2020-10-11] MEDS: Ensure Enlive Strawberry 8oz Bottle PO SCH ×2 (08:00→12:00)
[2020-10-11 09:00] VITALS: BP 135/54
--- NOTE | 2020-10-11 09:15 | NUR ---
MD VISIT HERE TO SEE AND EXAMINED PATIENT, EXPLAIN PLAN OF CARE AND DISCHARGE PLAN TO SNF PER PREFERENCE
[2020-10-11] MEDS: cefTRIAXone 1GM/50ML D5W 50 ML IV SCH (10:14)
[2020-10-11] MEDS: guaiFENesin-CODEINE Liq 5 ML UD PO PRN (10:14)
[2020-10-11] MEDS: HYDROcodone-ACET 10/325MG TAB PO PRN (10:15)
[2020-10-11] MEDS: ASCORBIC ACID 1,000 MG TAB PO SCH (10:16)
[2020-10-11] MEDS: predniSONE 20 MG TAB PO SCH (10:16)
[2020-10-11] MEDS: ZINC SULFATE 220mg CAP or TAB PO SCH (10:16)
[2020-10-11] MEDS: DOXYCYCLINE 100 MG TAB/CAP PO SCH ×2 (10:16→22:09)
[2020-10-11] MEDS: CHOLECALCIFEROL (VITD3) 2,000 UNIT CAP PO SCH (10:17)
--- NOTE | 2020-10-11 12:10 | NUR ---
RETURN CALL FOR DAUGHTER ALEXANDRA (PASS WORD VERIFIED) UPDATED PLAN OF CARE AND DISCHARGE PLAN DISCUSSED BY DR. BLOUNT WITH PATIENT
[2020-10-11 13:00] VITALS: BP 145/70
[2020-10-11 17:00] VITALS: BP 160/73
[2020-10-11 22:00] VITALS: BP 149/55
[2020-10-12] MEDS: HYDROcodone-ACET 10/325MG TAB PO PRN (00:49)
--- NOTE | 2020-10-12 01:53 | NUR ---
Dressing change Dressing change performed to sacral area. Patient repositioned for comfort. Patient tolerated intervention well.
[2020-10-12 05:39] VITALS: BP 113/52
[2020-10-12] MEDS: LEVALBUTEROL HCL 1.25 MG/3 ML NEB NEB SCH ×3 (07:12→19:22)
--- NOTE | 2020-10-12 08:30 | NUR ---
Patient alert, oriented and able to verbalize needs. Breathing is non labored but has intermittent cough but exhibits no shortness of breath. Wheezing scattered throughout lungs. Instructed on coughing and deep breathing, using incentive spirometer. Patient complained of hacking cough and requested medication.
[2020-10-12 09:00] VITALS: BP 131/55
--- NOTE | 2020-10-12 11:00 | NUR ---
Patient given robittusin with codeine, tolerated medication administration.
[2020-10-12] MEDS: cefTRIAXone 1GM/50ML D5W 50 ML IV SCH (11:50)
[2020-10-12] MEDS: predniSONE 20 MG TAB PO SCH (11:50)
[2020-10-12] MEDS: ASCORBIC ACID 1,000 MG TAB PO SCH (11:51)
[2020-10-12] MEDS: DOXYCYCLINE 100 MG TAB/CAP PO SCH ×2 (11:51→21:33)
[2020-10-12] MEDS: ZINC SULFATE 220mg CAP or TAB PO SCH (11:51)
[2020-10-12] MEDS: CHOLECALCIFEROL (VITD3) 2,000 UNIT CAP PO SCH (11:52)
[2020-10-12 13:01] VITALS: BP 116/52
[2020-10-12 17:00] VITALS: BP 137/82
[2020-10-12] MEDS: Ensure Enlive Strawberry 8oz Bottle PO SCH ×4 (18:26→18:29)
--- NOTE | 2020-10-12 19:15 | NUR ---
Opening Shift Note Assumed care of patient after receiving report from MARCY Hudson. Patient is awake and alert with no S/S of distress/SOB or pain. Call light within reach, bed in lowest locked position x2 side rails for safety, HOB semi fowlers. Instructed on POC and to call for assist PRN, will continue to monitor for changes Q1hr and PRN.
[2020-10-12] MEDS: guaiFENesin-CODEINE Liq 5 ML UD PO PRN (20:28)
--- NOTE | 2020-10-12 20:38 | NUR ---
PRN Robitussin given Patient requested cough medication, PRN Robitussin with codeine given at this time. Per medication pyxis, last time given was 10/12/20 at 11:47. Medication available at this time and given and documented in eMAR. Will continue to monitor.
[2020-10-12 22:00] VITALS: BP 139/55
[2020-10-13] MEDS: LEVALBUTEROL HCL 1.25 MG/3 ML NEB NEB SCH ×4 (00:54→19:25)
[2020-10-13 05:15] VITALS: BP 132/69
[2020-10-13 09:03] VITALS: BP 114/57
[2020-10-13] MEDS: ASCORBIC ACID 1,000 MG TAB PO SCH (09:56)
[2020-10-13] MEDS: DOXYCYCLINE 100 MG TAB/CAP PO SCH (09:56)
[2020-10-13] MEDS: predniSONE 20 MG TAB PO SCH (09:59)
[2020-10-13] MEDS: ZINC SULFATE 220mg CAP or TAB PO SCH (10:01)
[2020-10-13] MEDS: cefTRIAXone 1GM/50ML D5W 50 ML IV SCH (10:01)
[2020-10-13] MEDS: CHOLECALCIFEROL (VITD3) 2,000 UNIT CAP PO SCH (10:02)
[2020-10-13] MEDS: Ensure Enlive Strawberry 8oz Bottle PO SCH ×2 (10:02→12:29)
[2020-10-13] MEDS: guaiFENesin-CODEINE Liq 5 ML UD PO PRN (11:10)
--- NOTE | 2020-10-13 11:21 | NUR ---
Patient complained of intermittent productive cough and was given Robitussin with codeine as ordered.
--- NOTE | 2020-10-13 12:42 | NUR ---
D/C planning Contact patient in regards of SNF placement to [place] since she refused [facility]. Patient refer me to her daughter Linnette . Per Linnette is in agreement for patient to be transfer to [facility] as long as MD is okay. Informed CM Kristin who contact Dr. Hima BELCHER and per patient is okay to discharge to [facility]. Faxed clinical information to [facility]. Per Rob with [facility] patient has been accepted to room 215b accepting Dr. Taz BELCHER. Transportation will be arranged upon d/c day.
[2020-10-13 13:00] VITALS: BP 142/55
--- NOTE | 2020-10-13 13:00 | NUR ---
WOUND CARE NOTE: IN TO TAKE DISCHARGE PHOTO OF PATIENT'S SACRUM AT THIS TIME. PATIENT WILL BE DISCHARGED TO SNF THIS PM. PATIENT TURNED TO RIGHT SIDE. SACRAL WOUNDS LOOK MUCH IMPROVED, WITH PURPLE DTI, RESOLVING TO DARK RED. PINK SCARS NOTED AT [facility]. PATIENT CONTINUES TO REST ON AIR MATTRESS. WOUND PHOTOS TAKEN FOR REFERENCE. PATIENT TO BE DISCHARGED THIS PM.
[2020-10-13 17:15] VITALS: BP 145/52
--- NOTE | 2020-10-13 17:25 | NUR ---
D/C tour actor Frances advised me there is a discharge order in. [facility] with Eber Bravo has been informed. Number for RN to give report is . Transportation has been arranged with [facility] between 8-8:30 pm via gurney with oxygen. Addendum: 10/13/20 at 1730 by BALA BERMUDEZ Informed MARCY farrell
--- NOTE | 2020-10-13 22:07 | NUR ---
Patient Transferred The patient was transferred to [facility] in [place], [place] at 2050hrs. Called and gave report to Meghna. The patient was in good spirits, no complaints. There was no telemetry box to remove, left the left upper arm midline in place as it was thought the patient may continue IV antibiotics. She called her daughter who called the nurses station shortly after the patient left. The patient's daughter was very upset, stated transportation called and spoke to her younger sister instead of speaking to her. I explained I was confused as to why transportation would call her as it's usually the nurse who would do that. After calming down a bit she explained she was supposed to be notified before her mother was moved. I did not see a note with the information and the patient was capable of making her decisions, did not realize that was the situation. The Daughter hung up on me before I could explain that but she stated she would make a complaint.
== END 2020-10-13 22:07 | DRG 177 ==
LOC: ER 16:16 → EDBD 16:16 → TELE 23:12 → TELE-WESTW 10-05 18:00 → TELE-EAST 10-05 19:15 → TELE-WESTW 10-07 22:55
PROVIDERS: ADMIT Internal Medicine Cardiovascular Disease; ATTEND Internal Medicine Cardiovascular Disease
PROC: 05HC33Z Insertion of Infusion Device into Left Basilic Vein, Percutaneous Approach (ICD-10-PCS; principal; 2020-10-05)
PROC: B54NZZA Ultrasonography of Left Upper Extremity Veins, Guidance (ICD-10-PCS; 2020-10-05)
DX: U07.1 COVID-19 (principal); J12.89 Other viral pneumonia; J96.00 Acute respiratory failure, unspecified whether with hypoxia or hypercapnia; I50.32 Chronic diastolic (congestive) heart failure; E44.1 Mild protein-calorie malnutrition; D72.810 Lymphocytopenia; E78.5 Hyperlipidemia, unspecified; F32.9 Major depressive disorder, single episode, unspecified; F41.9 Anxiety disorder, unspecified; I11.0 Hypertensive heart disease with heart failure; I25.10 Atherosclerotic heart disease of native coronary artery without angina pectoris; D50.8 Other iron deficiency anemias; I48.91 Unspecified atrial fibrillation; Z79.01 Long term (current) use of anticoagulants; Z82.49 Family history of ischemic heart disease and other diseases of the circulatory system; Z90.710 Acquired absence of both cervix and uterus; Z83.3 Family history of diabetes mellitus
CPT/HCPCS: 36415; 36600; 71045; 80053; 81001; 82805; 83605; 83735; 83880; 84484; 85025; 85610; 85730; 87040; 87081; 87426; 92610; 94640; 96365; 96366; 97110; 97163; 97530; G0378; J0696; J2001